=== PATIENT | male | born 1960 | race Caucasian/White ===

== ENCOUNTER 2018-01-25 09:07 | Outpatient (CLI) | payer OTHER | END 2018-01-25 17:00 | disposition home or self-care (01) | LOC: TOM 09:07 | DX: K42.9 Umbilical hernia without obstruction or gangrene (principal) ==

== ENCOUNTER 2018-04-05 13:42 | Outpatient (CLI) | payer OTHER | END 2018-04-05 13:54 | disposition home or self-care (01) | LOC: SONOGRAMA 13:42 | DX: S93.402A Sprain of unspecified ligament of left ankle, initial encounter (principal) ==

== ENCOUNTER 2019-05-31 09:55 | Outpatient (CLI) | payer OTHER | END 2019-05-31 10:05 | disposition home or self-care (01) | LOC: RAD 09:55 | DX: K29.00 Acute gastritis without bleeding (principal); E66.8 Other obesity; K76.0 Fatty (change of) liver, not elsewhere classified; E78.2 Mixed hyperlipidemia; I10 Essential (primary) hypertension ==

== ENCOUNTER 2020-03-05 08:24 | Outpatient (CLI) | payer OTHER | END 2020-03-05 08:53 | disposition home or self-care (01) | LOC: TOM 08:24 | PROVIDERS: ATTEND Urology | DX: R31.0 Gross hematuria (principal); E04.1 Nontoxic single thyroid nodule ==